=== PATIENT | female | born 1980 | race Caucasian/White ===

== ENCOUNTER 2019-05-27 12:57 | Day surgery (SDC) | payer OTHER ==
[2019-05-27] MEDS ORDERED: CEFAZOLIN SODIUM IN 0.9 % NACL 2 GM/100 ML BAG IV ONE (13:35)
--- NOTE | 2019-05-27 13:44 | ANESTHESIA ---
Pre-Anesthesia VS, & Labs - Diagnosis left femoral head fracture - Procedure Left percutaneous fixation femoral head Vital Signs: Temp Pulse Resp BP Pulse Ox 36.8 C 82 14 148/92 H 99 05/27/19 13:19 05/27/19 13:19 05/27/19 13:19 05/27/19 13:19 05/27/19 13:19 Height 5 ft 3 in Weight (kg) 68.04 kg - NPO >8 hours - Is Patient ?: No Home Medications and Allergies Home Medications: Ambulatory Orders Calcium Carbonate 500 mg PO DAILY 05/25/19 Calcium Carbonate 500 mg PO 05/25/19 Allergies/Adverse Reactions: Allergies Allergy/AdvReac Type Severity Reaction Status Date / Time tramadol AdvReac Nausea Verified 05/25/19 15:20 Anes History & Medical History - Anesthetic History Anesthesia Complications: reports: No previous complications - Medical History Cardiovascular: reports: None Pulmonary: reports: None Gastrointestinal: reports: None Urinary: reports: None Neuro: reports: None Musculoskeletal: reports: Other Endocrine/Autoimmune: reports: None Skin: reports: None Smoking Status: Never smoker - Surgical History Gynecologic: section, Other Exam General: Alert Dental: WNL Mouth Opening: Greater than 4 Fingerbreadths Neck Mobility: Normal Mallampati classification: II Respiratory: Lungs clear Cardiovascular: Regular rate, Normal S1, Normal S2 Plan Anesthesia Type: General Consent for Procedure(s) Verified and Reviewed: Yes Code Status: Attempt Resuscitation ASA classification: 1-Healthy patient Is this case an emergency?: No
[2019-05-27 13:55] LABS: HCG UR QUAL NEGATIVE
[2019-05-27] MEDS ORDERED: LACTATED RINGERS 1,000 ML IV ONE (15:31)
[2019-05-27] MEDS ORDERED: BUPIVACAINE 0.25% PF 30 ML VIAL ONE (16:37)
[2019-05-27] MEDS ORDERED: BUPIVACAINE 0.25% PF 30 ML VIAL SUBQ ONE ×2 (16:42)
[2019-05-27] MEDS ORDERED: ONDANSETRON 4 MG/2 ML VIAL IVP PRN (17:30)
[2019-05-27] MEDS ORDERED: oxyCODONE 5 MG TABLET PO PRN (17:30)
[2019-05-27] MEDS: HYDROmorphone 1 MG/ML CARPUJECT ONE ×2 (17:33→17:43)
--- NOTE | 2019-05-27 17:39 | OPERATIVE REPORT ---
Operative Report - Other Other Information/Narrative: Date of Surgery: 27 May 2019 Pre-Op Diagnosis: Left femoral neck stress fracture Procedure: Percutaneous fixation of left femoral neck stress fracture Postop Diagnosis: Same as above Primary Surgeon: Bismark Valentine Secondary Surgeon: Temo Anderson Complications: None Tourniquet Time: None EBL: 25 mL Implants: Synthes 6.5 mm cannulated screws x3, one washer Postoperative Protocol: Toe-touch weightbearing for 2 weeks, we will gradually advance weightbearing after that, she can advance her activities as her pain subsides. X-ray should be obtained at the 2-week postoperative visit. Indication For Surgery: 38-year-old female who was diagnosed with a left femoral neck stress fracture multiple months ago. She was diagnosed by MRI and had a 25% fracture line and 100% edema of the neck. She was then managed with strict nonweightbearing status and got a repeat MRI after 6 weeks. Her MRI showed continued fracture line and continued edema. Additionally, she continued to have severe pain with any attempted weightbearing. She was indicated for surgery to expedite the healing process and allow for stable fixation for weightbearing. The risks, benefits, and alternatives were discussed. Risks include pain, bleeding, infection, damage to nearby structures, numbness, lack of symptom relief, implant complications, nonunion, need for further surgery, DVT, PE, stroke, and . Written consent was obtained. Procedure in Detail: The patient was met in the pre-operative hold area on the day of the procedure. The operative extremity was signed and questions were answered. The patient was brought to the operating room and a general anest hetic was administered. Supine position was used and all bony prominences were padded. We then placed her into the fracture table with the post. Everything was well-padded. Standard prepping and draping was performed. A time out confirmed patient identification, laterality, procedure, allergies, antibiotics, and images. Fluoroscopy was used to identify the trajectory at the screws. A 3 cm incision was made laterally over the left hip. The inferior guidewire was brought to the starting point at the level of the lesser trochanter. It was driven up into the femoral neck and lateral x-ray confirmed excellent trajectory. This guidewire was driven up into the head at the subchondral bone. 2 additional guidewires were placed one being superior and anterior and the other being superior and posterior to the initial guidewire. Excellent spread was obtained and the guidewires were all in excellent position as confirmed on fluoroscopy. I then measured the length of the guidewires and the bone and subtracted 5 mm. A knife was used to split the IT band for the inferior guidewire and the screw was placed with a washer. The superior screws were placed without washers and all had excellent purchase. Final images were then taken. The wound was then irrigated copiously and a single stitch was placed into the IT band approximating nicely. The wound was closed with 0 Vicryl deep 2-0 Vicryl in the dermis and a running Monocryl and skin. Mastisol and Steri-Strips were applied as well as a Mepilex dressing. She was awakened and transferred to the recovery room without issue.
[2019-05-27] MEDS ORDERED: fentaNYL 100 MCG/2 ML VIAL ONE (18:07)
--- NOTE | 2019-05-27 18:16 | XRAY Report ---
Reason: C-arm images for Left Hip nailing Procedure Date: 05/27/2019 Accession Number: [id number] / [id number] Procedure: XR - Hip w/Pelvis 1V LT CPT Code: FULL RESULT: EXAM: PELVIS RADIOGRAPHY EXAM DATE: 05/27/2019 05:07 PM. CLINICAL HISTORY: C-arm images for Left Hip nailing. COMPARISON: None available. TECHNIQUE: Intraoperative fluoroscopic views. FINDINGS: Intraoperative fluoroscopy was provided for left hip nailing. Fluoroscopic images show interval placement of three cannulated screws into the left femoral head and neck. Please refer to operative report for further details. Total fluoroscopy time: 1 minute 30 seconds (14 mGy). IMPRESSION: Left hip intraoperative fluoroscopy, as described above. [facility]
[2019-05-27] MEDS ORDERED: SODIUM CHLORIDE FLUSH 0.9% 10 ML SYRINGE ONE (19:03)
[2019-05-27 20:04] VITALS: BP 130/66
== END 2019-05-27 20:55 | disposition home or self-care (01) ==
LOC: SDS 12:57 → MS2 18:44 → SDS 20:55
PROVIDERS: ATTEND Orthopaedic Surgery
PROC: 0QH734Z Insertion of Internal Fixation Device into Left Upper Femur, Percutaneous Approach (ICD-10-PCS; principal; 2019-05-27 13:30)
DX: M84.359A Stress fracture, hip, unspecified, initial encounter for fracture (principal); Z87.891 Personal history of nicotine dependence
CPT/HCPCS: 27235; 73501; 81025; A9270; C1713; J0690; J1170; J7120